=== PATIENT | female | born 1955 | race Caucasian/White ===

== ENCOUNTER 2017-05-23 23:04 | Observation (INO) | payer OTHER ==
[2017-05-24] MEDS: ALBUTEROL 0.083% (NEB) 2.5 MG/3 ML AMP INH (00:15)
[2017-05-24] MEDS: IPRATROPIUM (NEB) 0.5 MG/2.5 ML AMP INH (00:15)
[2017-05-24 00:29] LABS: ADD MAN DIFF? NO
[2017-05-24 00:33] LABS: WHITE BLOOD COUNT 4.9 10^3/ul (4.8-10.8)
[2017-05-24 00:33] LABS: BASOPHILS % 0.8 % (0.0-2.0); EOSINOPHILS # 0.1 10^3/ul (0.0-0.5); EOSINOPHILS % 1.8 % (0.0-7.0); HEMATOCRIT 40.6 % (37.0-47.0); HEMOGLOBIN 13.5 g/dl (12.0-16.0); LYMPHOCYTES # 1.7 10^3/ul (0.8-2.9); LYMPHOCYTES % 34.2 % (15.0-51.0); MEAN CORPUSCULAR HEMOGLOBIN 31.3 pg (29.0-33.0); MEAN CORPUSCULAR HGB CONC 33.3 g/dl (32.0-37.0); MONOCYTE # 0.5 10^3/ul (0.3-0.9); MONOCYTES % 10.6 % (0.0-11.0); NEUTROPHIL # 2.6 10^3/ul (1.6-7.5); NEUTROPHILS % 52.2 % (39.0-77.0); PLATELET COUNT 247 10^3/UL (140-415); RED BLOOD COUNT 4.32 10^6/ul (4.20-5.40); RED CELL DISTRIBUTION WIDTH 13.4 % (11.5-14.5)
[2017-05-24 00:52] LABS: INR 1.12; PROTIME 14.6 Sec (11.9-14.9); PT RATIO 1.1
[2017-05-24 00:53] LABS: PARTIAL THROMBOPLASTIN TIME 28.6 Sec (25.0-35.0)
[2017-05-24 00:54] LABS: ALANINE AMINOTRANSFERASE 49 IU/L (13-69); ALBUMIN 4.3 g/dl (3.3-4.9); ALBUMIN/GLOBULIN RATIO 1.19; ALKALINE PHOSPHATASE 93 IU/L (42-121); ANION GAP 13 (8-16); ASPARTATE AMINO TRANSFERASE 37 IU/L (15-46); BILIRUBIN,INDIRECT 0.2 mg/dl (0-1.1); BILIRUBIN,TOTAL 0.2 mg/dl (0.2-1.3); BLOOD UREA NITROGEN 12 mg/dl (7-20); CALCIUM 9.6 mg/dl (8.4-10.2); CARBON DIOXIDE 32 mmol/L (21-31); CHLORIDE 99 mmol/L (97-110); CREATININE 0.67 mg/dl (0.44-1.00); GLUCOSE 130 mg/dl (70-220); POTASSIUM 3.6 mmol/L (3.5-5.1); SODIUM 140 mmol/L (135-144); TOTAL PROTEIN 7.9 g/dl (6.1-8.1)
[2017-05-24 01:05] LABS: B-TYPE NATRIURETIC PEPTIDE 491 PG/ML (0-125)
[2017-05-24 01:06] LABS: TROPONIN-I < 0.012 ng/ml (0.00-0.12)
[2017-05-24] MEDS: SODIUM CHLORIDE 0.9% 1L BAG IV* (02:55)
[2017-05-24 03:03] LABS: LACTIC ACID 1.7 mmol/L (0.5-2.0)
[2017-05-24] MEDS ORDERED: DEXTROSE 50% 50 ML SYRINGE IV ×2 (07:00)
[2017-05-24] MEDS ORDERED: GLUCOSE GEL 15 GRAM TUBE BUCCAL (07:00)
[2017-05-24] MEDS ORDERED: GLUCAGON 1 MG INJ IM (07:00)
[2017-05-24] MEDS ORDERED: GLUCOSE GEL 15 GRAM TUBE PO ×2 (07:00)
[2017-05-24 07:22] LABS: LACTIC ACID 1.6 mmol/L (0.5-2.0)
[2017-05-24] MEDS ORDERED: INSULIN ASPART [NOVOLOG] 3 ML PEN SC (07:35)
[2017-05-24] MEDS: HYDROCHLOROTHIAZIDE 25 MG TAB PO (08:36)
[2017-05-24] MEDS: RANOLAZINE (SR) 500 MG TAB PO ×2 (08:36→21:13)
[2017-05-24] MEDS: AMLODIPINE 10 MG TAB PO (08:36)
[2017-05-24] MEDS: ASPIRIN (EC) 81 MG TAB PO (08:36)
[2017-05-24] MEDS: DIAZEPAM 5 MG TAB PO (18:57)
[2017-05-24] MEDS: DIPHENHYDRAMINE 50 MG CAP PO (18:57)
[2017-05-24 20:08] LABS: CREATINE KINASE 52 IU/L (23-200)
[2017-05-24 20:18] LABS: CK INDEX 0.9; CK-MB 0.45 ng/ml (0.0-2.4)
[2017-05-24 20:24] LABS: TROPONIN-I < 0.012 ng/ml (0.00-0.12)
[2017-05-25 01:53] LABS: CREATINE KINASE 47 IU/L (23-200)
[2017-05-25] MEDS ORDERED: ACCU-CHEK XX (02:00)
[2017-05-25 02:04] LABS: CK INDEX 0.9
[2017-05-25 02:05] LABS: TROPONIN-I < 0.012 ng/ml (0.00-0.12)
[2017-05-25 05:10] LABS: ADD MAN DIFF? NO
[2017-05-25 05:14] LABS: WHITE BLOOD COUNT 4.2 10^3/ul (4.8-10.8)
[2017-05-25 05:14] LABS: BASOPHILS % 0.5 % (0.0-2.0); EOSINOPHILS # 0.1 10^3/ul (0.0-0.5); EOSINOPHILS % 2.8 % (0.0-7.0); HEMATOCRIT 39.1 % (37.0-47.0); LYMPHOCYTES # 1.8 10^3/ul (0.8-2.9); LYMPHOCYTES % 42.9 % (15.0-51.0); MEAN CORPUSCULAR HEMOGLOBIN 31.4 pg (29.0-33.0); MEAN CORPUSCULAR HGB CONC 33.2 g/dl (32.0-37.0); MEAN CORPUSCULAR VOLUME 94.4 fl (82.0-101.0); MEAN PLATELET VOLUME 11.1 fl (7.4-10.4); MONOCYTE # 0.5 10^3/ul (0.3-0.9); MONOCYTES % 12.6 % (0.0-11.0); NEUTROPHIL # 1.7 10^3/ul (1.6-7.5); PLATELET COUNT 220 10^3/UL (140-415); RED BLOOD COUNT 4.14 10^6/ul (4.20-5.40); RED CELL DISTRIBUTION WIDTH 13.4 % (11.5-14.5)
[2017-05-25 05:37] LABS: ANION GAP 10 (8-16); BLOOD UREA NITROGEN 8 mg/dl (7-20); CALCIUM 9.3 mg/dl (8.4-10.2); CARBON DIOXIDE 32 mmol/L (21-31); CHLORIDE 103 mmol/L (97-110); CHOL/HDL RATIO 2.7 RATIO; CHOLESTEROL 139 mg/dl (100-200); CREATININE 0.66 mg/dl (0.44-1.00); GLUCOSE 106 mg/dl (70-220); HDL CHOLESTEROL 50 mg/dl (35-98); LDL CHOLESTEROL,CALCULATED 77 mg/dl; POTASSIUM 3.7 mmol/L (3.5-5.1); SODIUM 141 mmol/L (135-144); TRIGLYCERIDES 60 mg/dl (0-149)
[2017-05-25 05:55] LABS: INR 1.08; PARTIAL THROMBOPLASTIN TIME 26.8 Sec (25.0-35.0); PROTIME 14.1 Sec (11.9-14.9); PT RATIO 1.1
[2017-05-25] MEDS: ASPIRIN (EC) 81 MG TAB PO (09:00)
[2017-05-25] MEDS ORDERED: MIDAZOLAM 1 MG/ML 2 ML INJ (11:23)
[2017-05-25] MEDS ORDERED: LIDOCAINE 1% (MDV) 20 ML INJ (11:23)
[2017-05-25] MEDS ORDERED: HEPARIN 1000 UNITS/ML 10 ML INJ (11:23)
[2017-05-25] MEDS ORDERED: IODIXANOL LOCM 100 ML BTL (11:23)
[2017-05-25] MEDS ORDERED: FENTAnyl 50 MCG/ML VIAL (11:23)
[2017-05-25] MEDS ORDERED: VERAPAMIL 5 MG INJ (11:23)
[2017-05-25] MEDS ORDERED: NITROGLYCERIN (IC) 100 MCG/ML INJ (11:24)
[2017-05-25] MEDS ORDERED: SOD CHLORIDE 0.9% 500 ML (11:27)
[2017-05-25] MEDS: SOD CHLORIDE 0.9% 1,000 ML IV (12:00)
[2017-05-25] MEDS ORDERED: ACETAMINOPHEN 325 MG TAB PO (13:00)
[2017-05-25] MEDS ORDERED: morphine 2 MG INJ IV (13:00)
[2017-05-25] MEDS ORDERED: ONDANSETRON 4 MG INJ IV (13:00)
[2017-05-25] MEDS ORDERED: AL HYDROX/MG HYDROX/SIMETH 30 ML CUP PO (13:00)
[2017-05-25] MEDS: RANOLAZINE (SR) 500 MG TAB PO ×2 (15:28→21:04)
[2017-05-25] MEDS: HYDROCHLOROTHIAZIDE 25 MG TAB PO (15:32)
[2017-05-25] MEDS: AMLODIPINE 10 MG TAB PO (15:35)
[2017-05-25] MEDS: APIXABAN 5 MG TABLET PO (21:01)
[2017-05-25] MEDS: METOPROLOL 25 MG TAB PO (21:03)
[2017-05-26 05:02] LABS: ADD MAN DIFF? NO
[2017-05-26 05:12] LABS: BASOPHILS % 0.6 % (0.0-2.0); EOSINOPHILS # 0.1 10^3/ul (0.0-0.5); EOSINOPHILS % 2.1 % (0.0-7.0); HEMATOCRIT 36.8 % (37.0-47.0); HEMOGLOBIN 12.2 g/dl (12.0-16.0); LYMPHOCYTES # 2.1 10^3/ul (0.8-2.9); LYMPHOCYTES % 44.3 % (15.0-51.0); MEAN CORPUSCULAR HGB CONC 33.2 g/dl (32.0-37.0); MEAN CORPUSCULAR VOLUME 93.4 fl (82.0-101.0); MEAN PLATELET VOLUME 11.3 fl (7.4-10.4); MONOCYTE # 0.6 10^3/ul (0.3-0.9); MONOCYTES % 12.4 % (0.0-11.0); NEUTROPHIL # 1.9 10^3/ul (1.6-7.5); NEUTROPHILS % 40.2 % (39.0-77.0); PLATELET COUNT 225 10^3/UL (140-415); RED BLOOD COUNT 3.94 10^6/ul (4.20-5.40); RED CELL DISTRIBUTION WIDTH 13.4 % (11.5-14.5)
[2017-05-26 05:12] LABS: WHITE BLOOD COUNT 4.7 10^3/ul (4.8-10.8)
[2017-05-26 05:34] LABS: MAGNESIUM 1.5 mg/dl (1.7-2.5)
[2017-05-26 05:36] LABS: ANION GAP 12 (8-16); BLOOD UREA NITROGEN 16 mg/dl (7-20); CALCIUM 9.4 mg/dl (8.4-10.2); CARBON DIOXIDE 31 mmol/L (21-31); CHLORIDE 101 mmol/L (97-110); GLUCOSE 100 mg/dl (70-220); POTASSIUM 3.6 mmol/L (3.5-5.1); SODIUM 140 mmol/L (135-144)
[2017-05-26] MEDS: AMLODIPINE 10 MG TAB PO (09:00)
[2017-05-26] MEDS: RANOLAZINE (SR) 500 MG TAB PO (09:37)
[2017-05-26] MEDS: APIXABAN 5 MG TABLET PO (09:39)
[2017-05-26] MEDS: METOPROLOL 25 MG TAB PO (09:39)
[2017-05-26] MEDS: ASPIRIN (EC) 81 MG TAB PO (09:39)
[2017-05-26] MEDS: HYDROCHLOROTHIAZIDE 25 MG TAB PO (12:48)
[2017-05-26] MEDS: MAGNESIUM SULFATE 2 GM/50 ML 50 ML IVPB (12:48)
== END 2017-05-26 15:46 | disposition home or self-care (01) ==
LOC: E/R 23:04 → MS3 05-24 03:39
PROVIDERS: Internal Medicine
DX: R07.9 Chest pain, unspecified (principal); I25.10 Atherosclerotic heart disease of native coronary artery without angina pectoris; R06.02 Shortness of breath; I10 Essential (primary) hypertension; I48.91 Unspecified atrial fibrillation; E78.5 Hyperlipidemia, unspecified; F41.9 Anxiety disorder, unspecified; Z79.82 Long term (current) use of aspirin; Z79.01 Long term (current) use of anticoagulants
CPT/HCPCS: 36415; 71045; 80048; 80053; 80061; 82550; 82553; 83605; 83735; 83880; 84484; 85025; 85610; 85730; 87040; 87086; 87400; 93005; 93458; 94664; 99285-25

== ENCOUNTER 2018-07-18 16:44 | Emergency (ER) | payer OTHER ==
[2018-07-18] MEDS: ASPIRIN 325 MG TAB PO (22:07)
[2018-07-18 22:16] LABS: ADD MAN DIFF? NO
[2018-07-18 22:18] LABS: WHITE BLOOD COUNT 5.1 10^3/ul (4.8-10.8)
[2018-07-18 22:18] LABS: BASOPHILS % 0.4 % (0.0-2.0); HEMOGLOBIN 13.6 g/dl (12.0-16.0); LYMPHOCYTES # 1.3 10^3/ul (0.8-2.9); LYMPHOCYTES % 25.7 % (15.0-51.0); MEAN CORPUSCULAR HEMOGLOBIN 30.8 pg (29.0-33.0); MEAN CORPUSCULAR HGB CONC 32.4 g/dl (32.0-37.0); MEAN PLATELET VOLUME 10.6 fl (7.4-10.4); MONOCYTE # 0.6 10^3/ul (0.3-0.9); MONOCYTES % 10.9 % (0.0-11.0); NEUTROPHIL # 3.2 10^3/ul (1.6-7.5); NEUTROPHILS % 62.8 % (39.0-77.0); PLATELET COUNT 227 10^3/UL (140-415); RED BLOOD COUNT 4.42 10^6/ul (4.20-5.40); RED CELL DISTRIBUTION WIDTH 13.7 % (11.5-14.5)
[2018-07-18 22:39] LABS: INR 1.14; PROTIME 14.7 Sec (11.9-14.9); PT RATIO 1.1
[2018-07-18 22:40] LABS: PARTIAL THROMBOPLASTIN TIME 30.5 Sec (23.0-35.0)
[2018-07-18 22:44] LABS: ALANINE AMINOTRANSFERASE 45 IU/L (13-69); ALBUMIN 4.3 g/dl (3.3-4.9); ALBUMIN/GLOBULIN RATIO 1.19; ALKALINE PHOSPHATASE 90 IU/L (42-121); ANION GAP 9 (5-13); ASPARTATE AMINO TRANSFERASE 58 IU/L (15-46); BILIRUBIN,INDIRECT 0.7 mg/dl (0-1.1); BILIRUBIN,TOTAL 0.7 mg/dl (0.2-1.3); BLOOD UREA NITROGEN 10 mg/dl (7-20); CALCIUM 9.6 mg/dl (8.4-10.2); CARBON DIOXIDE 31 mmol/L (21-31); CHLORIDE 101 mmol/L (97-110); CREATININE 0.63 mg/dl (0.44-1.00); Estimated GFR > 60 mL/min (>60); GLUCOSE 112 mg/dl (70-220); POTASSIUM 3.9 mmol/L (3.5-5.1); SODIUM 141 mmol/L (135-144); TOTAL PROTEIN 7.9 g/dl (6.1-8.1)
[2018-07-18 22:55] LABS: TROPONIN-I < 0.012 ng/ml (0.000-0.120)
[2018-07-18] MEDS ORDERED: CEFTRIAXONE 1 GM INJ IM (23:30)
[2018-07-18] MEDS: CEFTRIAXONE 1 GM/50 ML (PMX) 50 ML IVPB (23:52)
== END 2018-07-19 00:21 | disposition home or self-care (01) ==
LOC: FTE 07-19 00:21
DX: J18.9 Pneumonia, unspecified organism (principal); I10 Essential (primary) hypertension; Z79.82 Long term (current) use of aspirin
CPT/HCPCS: 71046; 80053; 84484; 85025; 85610; 85730; 93005; 96374; 99285-25

== ENCOUNTER 2018-07-26 16:29 | Emergency (ER) | payer OTHER ==
[2018-07-26] MEDS: ALBUTEROL 0.083% (NEB) 2.5 MG/3 ML AMP HHN (22:01)
[2018-07-26] MEDS: IPRATROPIUM (NEB) 0.5 MG/2.5 ML AMP HHN (22:02)
== END 2018-07-26 23:06 | disposition home or self-care (01) ==
LOC: FTE 16:29
DX: R05 Cough (principal); I10 Essential (primary) hypertension; Z79.82 Long term (current) use of aspirin; Z79.01 Long term (current) use of anticoagulants
CPT/HCPCS: 94664; 99284-25

== ENCOUNTER 2018-08-18 00:43 | Emergency (ER) | payer OTHER | END 2018-08-18 03:25 | disposition home or self-care (01) | LOC: FTE 00:43 | DX: R05 Cough (principal); R50.9 Fever, unspecified; I10 Essential (primary) hypertension; Z79.82 Long term (current) use of aspirin | CPT/HCPCS: 99283; Z7502 ==

== ENCOUNTER 2018-09-11 17:38 | Emergency (ER) | payer OTHER ==
[2018-09-11] MEDS: ALBUTEROL 0.083% (NEB) 2.5 MG/3 ML AMP HHN (18:34)
[2018-09-11] MEDS: IPRATROPIUM (NEB) 0.5 MG/2.5 ML AMP HHN (18:34)
[2018-09-11] MEDS: DEXAMETHASONE 10 MG/ML 1 ML INJ IM (18:45)
== END 2018-09-11 19:21 | disposition home or self-care (01) ==
LOC: FTE 17:38
DX: R06.2 Wheezing (principal); I10 Essential (primary) hypertension; Z79.82 Long term (current) use of aspirin
CPT/HCPCS: 94664; 96372; 99284-25

== ENCOUNTER 2018-12-20 18:37 | Emergency (ER) | payer OTHER ==
[2018-12-20 20:03] LABS: ADD MAN DIFF? NO
[2018-12-20 20:05] LABS: BASOPHILS % 0.6 % (0.0-2.0); EOSINOPHILS % 0.2 % (0.0-7.0); HEMATOCRIT 41.4 % (37.0-47.0); HEMOGLOBIN 13.2 g/dl (12.0-16.0); LYMPHOCYTES # 1.9 10^3/ul (0.8-2.9); LYMPHOCYTES % 39.2 % (15.0-51.0); MEAN CORPUSCULAR HEMOGLOBIN 30.9 pg (29.0-33.0); MEAN CORPUSCULAR HGB CONC 31.9 g/dl (32.0-37.0); MEAN PLATELET VOLUME 11.6 fl (7.4-10.4); MONOCYTE # 0.6 10^3/ul (0.3-0.9); MONOCYTES % 12.7 % (0.0-11.0); NEUTROPHIL # 2.2 10^3/ul (1.6-7.5); NEUTROPHILS % 46.9 % (39.0-77.0); PLATELET COUNT 192 10^3/UL (140-415); RED BLOOD COUNT 4.27 10^6/ul (4.20-5.40); RED CELL DISTRIBUTION WIDTH 13.5 % (11.5-14.5)
[2018-12-20 20:05] LABS: WHITE BLOOD COUNT 4.7 10^3/ul (4.8-10.8)
[2018-12-20 20:25] LABS: ANION GAP 9 (5-13); BLOOD UREA NITROGEN 9 mg/dl (7-20); CALCIUM 9.7 mg/dl (8.4-10.2); CARBON DIOXIDE 34 mmol/L (21-31); CHLORIDE 99 mmol/L (97-110); CREATININE 0.59 mg/dl (0.44-1.00); Estimated GFR > 60 mL/min (>60); GLUCOSE 95 mg/dl (70-220); POTASSIUM 3.2 mmol/L (3.5-5.1); SODIUM 142 mmol/L (135-144)
[2018-12-20 20:36] LABS: TROPONIN-I < 0.012 ng/ml (0.000-0.120)
== END 2018-12-20 21:10 | disposition home or self-care (01) ==
LOC: E/R 18:37
DX: R06.02 Shortness of breath (principal); I10 Essential (primary) hypertension; Z79.82 Long term (current) use of aspirin; Z79.01 Long term (current) use of anticoagulants
CPT/HCPCS: 36415; 71045; 80048; 84484; 85025; 93005; 99285-25

== ENCOUNTER 2019-01-14 13:09 | Emergency (ER) | payer OTHER | END 2019-01-14 14:17 | disposition home or self-care (01) | LOC: E/R 13:09 | DX: T50.2X1A Poisoning by carbonic-anhydrase inhibitors, benzothiadiazides and other diuretics, accidental (unintentional), initial encounter (principal); T44.7X1A Poisoning by beta-adrenoreceptor antagonists, accidental (unintentional), initial encounter; I10 Essential (primary) hypertension | CPT/HCPCS: 99282; Z7502 ==